=== PATIENT | female | born 2000 | race Caucasian/White ===

== ENCOUNTER 2019-06-29 22:57 | Emergency (ER) | payer OTHER ==
[~2019-06-29] VITALS: Ht 162.6 cm; Wt 70.0 kg
[2019-06-29] MEDS ORDERED: ONDANSETRON ODT 4 MG PO ONE (23:30)
--- NOTE | 2019-06-29 23:36 | NUR ---
PT TO CT
--- NOTE | 2019-06-29 23:52 | NUR ---
PT RESTING IN BED, A/O X4 AND SPEAKING FULL SENTENCES.
--- NOTE | 2019-06-30 00:03 | NUR ---
[facility] CALLED PER REQUEST OF THE PATIENT.
[2019-06-30 00:24] VITALS: BP 115/83
--- NOTE | 2019-06-30 01:00 | NUR ---
[facility] AT BEDSIDE
[2019-06-30] MEDS ORDERED: ONDANSETRON ODT 4 MG ONE (01:41)
[2019-06-30] MEDS ORDERED: HYDROcodone/APAP 5/325 TABLET ONE ×2 (01:42→02:07)
[2019-06-30] MEDS: HYDROcodone/APAP 5/325 TABLET PO PRN ×2 (01:45→02:09)
--- NOTE | 2019-06-30 01:46 | NUR ---
PT DECLINED MEDS. NORCO WAS WASTED IN MED ROOM WITH ANICETO LUONG.
--- NOTE | 2019-06-30 01:54 | NUR ---
[facility] REMAINS AT BEDSIDE.
== END 2019-06-30 02:22 | disposition home or self-care (01) ==
LOC: ED 06-30 02:05
DX: S06.0X0A Concussion without loss of consciousness, initial encounter (principal); S09.90XA Unspecified injury of head, initial encounter; Y04.8XXA Assault by other bodily force, initial encounter; Y93.89 Activity, other specified; Y92.410 Unspecified street and highway as the place of occurrence of the external cause; Y99.8 Other external cause status
CPT/HCPCS: 70450; 72125; 99284